=== PATIENT | male | born 1970 | race African-American/Black ===

== ENCOUNTER 2016-11-17 14:32 | Emergency (ER) | payer SELFPAY ==
[~2016-11-17] VITALS: Ht 182.9 cm; Wt 102.1 kg
[2016-11-17 14:52] VITALS: BP 156/96
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
[2016-11-17] MEDS ORDERED: ROBAXIN-750750 MG PO (15:24)
[2016-11-17] MEDS ORDERED: IBUPROFEN600 MG ORAL (15:24)
[2016-11-17 15:58] VITALS: BP 146/85
[2016-11-17 16:00] VITALS: BP 146/85
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
== END 2016-11-17 16:01 | disposition home or self-care (01) ==
LOC: EMR 15:47
DX: S13.9XXA Sprain of joints and ligaments of unspecified parts of neck, initial encounter (principal); V43.62XA Car passenger injured in collision with other type car in traffic accident, initial encounter; Y93.9 Activity, unspecified; Y92.410 Unspecified street and highway as the place of occurrence of the external cause; Z88.0 Allergy status to penicillin; M25.519 Pain in unspecified shoulder; I10 Essential (primary) hypertension
CPT/HCPCS: 72040; 99284